=== PATIENT | female | born 1965 ===

== ENCOUNTER 2021-09-22 17:35 | Inpatient (IN) | payer MEDICARE ==
[2021-09-22] MEDS ORDERED: MELATONIN 5 MG TAB PO PRN (19:37)
[2021-09-22] MEDS: DULoxetine 30 MG CAP PO SCH (21:25)
[2021-09-22] MEDS: QUEtiapine 200 MG TAB PO SCH (21:25)
[2021-09-23 00:04] LABS: Basophils # (Auto) 0.1 K/mm3 (0.0-0.1); Basophils % (Auto) 0.8 % (0.0-1.8); Eosinophils # (Auto) 0.4 K/mm3 (0.0-0.4); Eosinophils % (Auto) 5.3 % (0.0-4.3); Hemoglobin 9.2 gm/dl (10.1-14.3); Lymphocytes # (Auto) 2.6 K/mm3 (1.2-5.4); Lymphocytes % (Auto) 37.7 % (13.4-35.0); Mean Corpuscular HGB Conc 33 % (30-34); Mean Corpuscular Volume 102 fl (79-97); Monocytes # (Auto) 1.1 K/mm3 (0.0-0.8); Monocytes % (Auto) 15.6 % (0.0-7.3); Platelet Count 426 K/mm3 (140-440); Red Blood Count 2.74 M/mm3 (3.65-5.03); Red Cell Distribution Width 14.2 % (13.2-15.2)
[2021-09-23] MEDS: traZODone 50 MG TAB PO SCH ×2 (00:05→21:26)
[2021-09-23] MEDS ORDERED: ACETAMINOPHEN 325 MG TAB PO PRN (00:44)
[2021-09-23 01:09] LABS: Alanine Aminotransferase 12 units/L (7-56); Albumin 3.5 g/dL (3.9-5); BUN/Creatinine Ratio 21; Blood Urea Nitrogen 15 mg/dL (7-17); Calcium 9.2 mg/dL (8.4-10.2); Chol/HDL Ratio 4.88 %; HDL Cholesterol 44 mg/dL (40-59); Hemolysis Index 1; LDL Cholesterol,Direct 143 mg/dL (50-130)
--- NOTE | 2021-09-23 09:34 | History and Physical Report ---
GP History & Physical - History of Present Illness Date of admission: 09/22/21 Date of Examination: 09/23/21 Reason for Admission: Danger to self, Failure of Outpatient Treatment, Severe anxiety/depression History of Present Illness: The patient was seen today. She is a/o x 3. She is calm and cooperative. She is not upfront about what happened to get her here. She was admitted after taking a handful of antipsychotics and drinking, according to admission note. During my evaluation, the patient states she was here due to a big misunderstanding. She says she told the teo she was drinking with she wish she could just sleep. She says "next thing I know he called 911." The patient says "I'm not suicidal or homicidal." When asking about the handful of pills, she says "it was a big misunderstanding." She denies hallucinations of any kind. 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 I wouldn't do that to myself." The patient says she has a history of bipolar and takes seroquel and cymbalta. She also denies chronic alcohol use. She says "I just drink occasionally. I don't get withdrawals if I don't drink." PAST PSYCHIATRIC HISTORY: Diagnoses: Bipolar Suicide attempts or Self-harm behavior: Yes- recent Prior psychiatric hospitalizations: Yes Substance Abuse history: Denies Previous psychiatric medications tried: cymbalta, seroquel Outpatient treatment: yes PAST MEDICAL HISTORY: unknown Family Psychiatric History: None reported or documented SOCIAL HISTORY Marital Status: Living Arrangements: temporarily in hotel Employment Status: Employed Access to guns/weapons: Denies Education: History of Abuse:denies Legal History: Denies REVIEW OF SYSTEMS Constitutional: Negative for weight loss ENT: Negative for stridor Respiratory: Negative for cough or hemoptysis All other systems reviewed and are negative MENTAL STATUS EXAMINATION General Appearance and Behavior: Age appropriate, good hygiene, wearing appropriate clothes. calm, cooperative Cooperation: Cooperative Psychomotor Behavior: Psychomotor normal Mood: Okay Affect and affective range: Congruent with stated mood Thought Process: Goal directed Thought Content:Reality oriented Speech: Normal Suicidal Ideation: Denies Homicidal Ideation: Denies Hallucinations: Denies Delusions: Denies Impulse Control: Limited Insight and Judgment: Limited insight and fair judgment Memory: Limited Attention: distracted Orientation: a/o x 3 Assessment (1) Bipolar Disorder Current Visit: Yes Status: Acute Treatment Plan Patient admitted for inpatient psychiatric evaluation, medication adjustment and close monitoring The patient's behavior, mood, sleep and appetite will be closely monitored. Patient enrolled in individual and group therapeutic sessions and encouraged to attend. Patient provided with a safe and structured environment. Patient's physical health needs will be addressed by the Hospitalist. Hospitalist Consulted Labs including CBC, CMP, Lipid profile and Hemoglobin A1C levels ordered for baseline reference Social Assessment will be completed and the Public Relations Account Supervisor will work with patient and family to ensure a suitable and safe disposition Medication adjustment will be made as clinically indicated Continue home medications Usual Wellness [place] [place]/Preservation: - Start Trazodone 50 mg po QHS & 50 mg po QHS PRN between 10 PM & 2 AM for insomnia - Start Melatonin 5 mg po QHS to promote circadian rhythm The patient agreed on the treatment plan, understood the risk, benefit, alternative treatment, potential consequence of no treatment, and gave informed consent. Estimated days: 7 Post hospital care: primary care provider, psychiatric provider Case staffed with Dr. Long Legal Status: Voluntary Reaction to Hospitalization: Accepting Medications and Allergies Allergies Allergy/AdvReac Type Severity Reaction Status Date / Time No Known Drug Allergies Allergy Unknown Verified 09/22/21 19:33 Home Medications Medication Instructions Recorded Confirmed Last Taken Type DULoxetine [Cymbalta] 60 mg PO BID 09/22/21 09/22/21 09/21/21 History Fluticasone Propionate [Flovent 50 mcg IH UNK 09/22/21 09/22/21 Unknown History Diskus] Fluticasone/Salmeterol(Nf) [Advair 1 puff IH Q4H 09/22/21 09/22/21 Unknown History HFA 115-21 mcg] Meloxicam [Mobic] 15 mg PO DAILY 09/22/21 09/22/21 09/21/21 History Quetiapine Fumarate [SEROquel] 400 mg PO HS 09/22/21 09/22/21 09/21/21 History Active Meds: Active Medications Acetaminophen (Acetaminophen 325 Mg Tab) 650 mg PO Q6H PRN PRN Reason: Pain, Mild (1-3) Last Admin: 09/23/21 00:53 Dose: 650 mg Duloxetine HCl (Duloxetine 30 Mg Cap) 60 mg PO BID [facility] Last Admin: 09/22/21 21:25 Dose: 60 mg Melatonin (Melatonin 5 Mg Tab) 5 mg PO QHS PRN PRN Reason: Sleep Quetiapine Fumarate (Quetiapine 200 Mg Tab) 400 mg PO QHS [facility] Last Admin: 09/22/21 21:25 Dose: 400 mg Trazodone HCl (Trazodone 50 Mg Tab) 50 mg PO QHS [facility] Last Admin: 09/23/21 00:05 Dose: Not Given Results - Results Labs/Vitals: Laboratory Last Values WBC 7.0 K/mm3 (4.5-11.0) 09/22/21 23:24 RBC 2.74 M/mm3 (3.65-5.03) L 09/22/21 23:24 Hgb 9.2 gm/dl (10.1-14.3) L 09/22/21 23:24 Hct 28.0 % (30.3-42.9) L 09/22/21 23:24 MCV 102 fl (79-97) H 09/22/21 23:24 MCH 34 pg (28-32) H 09/22/21 23:24 MCHC 33 % (30-34) 09/22/21 23:24 RDW 14.2 % (13.2-15.2) 09/22/21 23:24 Plt Count 426 K/mm3 (140-440) 09/22/21 23:24 Lymph % (Auto) 37.7 % (13.4-35.0) H 09/22/21 23:24 [place] % (Auto) 15.6 % (0.0-7.3) H 09/22/21 23:24 Eos % (Auto) 5.3 % (0.0-4.3) H 09/22/21 23:24 Baso % (Auto) 0.8 % (0.0-1.8) 09/22/21 23:24 Lymph # (Auto) 2.6 K/mm3 (1.2-5.4) 09/22/21 23:24 [place] # (Auto) 1.1 K/mm3 (0.0-0.8) H 09/22/21 23:24 Eos # (Auto) 0.4 K/mm3 (0.0-0.4) 09/22/21 23:24 Baso # (Auto) 0.1 K/mm3 (0.0-0.1) 09/22/21 23:24 Seg Neutrophils % 40.6 % (40.0-70.0) 09/22/21 23:24 Seg Neutrophils # 2.8 K/mm3 (1.8-7.7) 09/22/21 23:24 Sodium 137 mmol/L (137-145) 09/22/21 23:24 Potassium 4.0 mmol/L (3.6-5.0) 09/22/21 23:24 Chloride 102.0 mmol/L (98-107) 09/22/21 23:24 Carbon Dioxide 22 mmol/L (22-30) 09/22/21 23:24 Anion Gap 17 mmol/L 09/22/21 23:24 BUN 15 mg/dL (7-17) 09/22/21 23:24 Creatinine 0.7 mg/dL (0.6-1.2) 09/22/21 23:24 Estimated GFR > 60 ml/min 09/22/21 23:24 BUN/Creatinine Ratio 21 % 09/22/21 23:24 Glucose 103 mg/dL (65-100) H 09/22/21 23:24 Hemoglobin A1c 5.5 % (4-6) 09/22/21 23:24 Calcium 9.2 mg/dL (8.4-10.2) 09/22/21 23:24 Total Bilirubin < 0.20 mg/dL (0.1-1.2) 09/22/21 23:24 AST 17 units/L (5-40) 09/22/21 23:24 ALT 12 units/L (7-56) 09/22/21 23:24 Alkaline Phosphatase 79 units/L (35-129) 09/22/21 23:24 Total Protein 6.5 g/dL (6.3-8.2) 09/22/21 23:24 Albumin 3.5 g/dL (3.9-5) L 09/22/21 23:24 Albumin/Globulin Ratio 1.2 % 09/22/21 23:24 Triglycerides 249 mg/dL (2-149) H 09/22/21 23:24 Cholesterol 215 mg/dL (50-199) H 09/22/21 23:24 LDL Cholesterol Direct 143 mg/dL (50-130) H 09/22/21 23:24 HDL Cholesterol 44 mg/dL (40-59) 09/22/21 23:24 Cholesterol/HDL Ratio 4.88 % 09/22/21 23:24 TSH 7.010 mlU/mL (0.270-4.200) H 09/22/21 23:24 Last Vital Signs Temp 99.5 F 09/22/21 22:00 Pulse 77 09/22/21 22:00 Resp 16 09/22/21 22:00 BP 135/92 09/22/21 22:00 Pulse Ox 95 09/22/21 22:00 Physical Examination - Constitutional Vitals: Vital Signs Temp Pulse Resp BP Pulse Ox 99.5 F 77 16 135/92 95 09/22/21 22:00 09/22/21 22:00 09/22/21 22:00 09/22/21 22:00 09/22/21 22:00 Temperature -Last 24 Hours Temperature 99.5 F Mental Status Exam - Vital signs Last Vital Signs Temp 99.5 F 09/22/21 22:00 Pulse 77 09/22/21 22:00 Resp 16 09/22/21 22:00 BP 135/92 09/22/21 22:00 Pulse Ox 95 09/22/21 22:00 Physician Certification - Certification Statement Physician Certification Statement: This is an acknowledgement statement that VISHAL BOJORQUEZ is a 56 year old F who requires inpatient psychiatric admission for treatment which could reasonably be expected to improve the patient's condition for Estimated period of time patient will need to remain in the hospital: [ ] Plan for post-hospital care: [ ]
[2021-09-23] MEDS ORDERED: NON-FORMULARY EACH (Fluticasone/Salmeterol(Nf) [Advair Hfa 115-21 Mcg] 115 MCG/PUFF Hfa.Ae IH SCH (09:45)
[2021-09-23] MEDS ORDERED: NON-FORMULARY EACH (Fluticasone Propionate [Flovent Diskus] 50 MCG Blst.W.Dev) IH SCH (09:45)
[2021-09-23] MEDS ORDERED: NON-FORMULARY EACH (Meloxicam [Mobic] 15 MG Tablet) PO SCH (10:00)
[2021-09-23] MEDS: DULoxetine 30 MG CAP PO SCH ×2 (10:39→21:26)
[2021-09-23] MEDS: MELOXICAM 7.5 MG TAB PO SCH (10:40)
[2021-09-23] MEDS: QUEtiapine 200 MG TAB PO SCH (21:26)
[2021-09-24] MEDS: MELOXICAM 7.5 MG TAB PO SCH (09:50)
[2021-09-24] MEDS: DULoxetine 30 MG CAP PO SCH ×2 (09:52→21:16)
--- NOTE | 2021-09-24 10:16 | Progress Note ---
Subjective Date of service: 09/24/21 Principal diagnosis: Bipolar Disorder Subjective Comment: The patient was seen today. She is asking to go home. She denies SI/HI or hallucinations of any kind. I advised the patient that she will discharge once the SW is able to set up all outpatient resources to ensure her safety and continuity of mental wellness. REVIEW OF SYSTEMS Constitutional: Negative for weight loss ENT: Negative for stridor Respiratory: Negative for cough or hemoptysis All other systems reviewed and are negative MENTAL STATUS EXAMINATION General Appearance and Behavior: Age appropriate, good hygiene, wearing appropriate clothes. calm, cooperative Cooperation: Cooperative Psychomotor Behavior: Psychomotor normal Mood: Okay Affect and affective range: Congruent with stated mood Thought Process: Goal directed Thought Content:Reality oriented Speech: Normal Suicidal Ideation: Denies Homicidal Ideation: Denies Hallucinations: Denies Delusions: Denies Impulse Control: Limited Insight and Judgment: Limited insight and fair judgment Memory: Limited Attention: distracted Orientation: a/o x 3 Assessment (1) Bipolar Disorder Current Visit: Yes Status: Acute Treatment Plan Patient admitted for inpatient psychiatric evaluation, medication adjustment and close monitoring The patient's behavior, mood, sleep and appetite will be closely monitored. Patient enrolled in individual and group therapeutic sessions and encouraged to attend. Patient provided with a safe and structured environment. Patient's physical health needs will be addressed by the Hospitalist. Hospitalist Consulted Labs including CBC, CMP, Lipid profile and Hemoglobin A1C levels ordered for baseline reference Social Assessment will be completed and the Poiser Balance will work with patient and family to ensure a suitable and safe disposition Medication adjustment will be made as clinically indicated Continue home medications Usual Wellness [employer]/Preservation: - Start Trazodone 50 mg po QHS & 50 mg po QHS PRN between 10 PM & 2 AM for insomnia - Start Melatonin 5 mg po QHS to promote circadian rhythm The patient agreed on the treatment plan, understood the risk, benefit, alternative treatment, potential consequence of no treatment, and gave informed consent. Estimated days: 7 Post hospital care: primary care provider, psychiatric provider Case staffed with Dr. Long Legal Status: Voluntary Reaction to Hospitalization: Accepting Medications and Allergies Allergies Allergy/AdvReac Type Severity Reaction Status Date / Time No Known Drug Allergies Allergy Unknown Verified 09/22/21 19:33 Home Medications Medication Instructions Recorded Confirmed Last Taken Type DULoxetine [Cymbalta] 60 mg PO BID 09/22/21 09/22/21 09/21/21 History Fluticasone Propionate [Flovent 50 mcg IH UNK 09/22/21 09/22/21 Unknown History Diskus] Fluticasone/Salmeterol(Nf) [Advair 1 puff IH Q4H 09/22/21 09/22/21 Unknown History HFA 115-21 mcg] Meloxicam [Mobic] 15 mg PO DAILY 09/22/21 09/22/21 09/21/21 History Quetiapine Fumarate [SEROquel] 400 mg PO HS 09/22/21 09/22/21 09/21/21 History Active Meds: Active Medications Acetaminophen (Acetaminophen 325 Mg Tab) 650 mg PO Q6H PRN PRN Reason: Pain, Mild (1-3) Last Admin: 09/23/21 00:53 Dose: 650 mg Arformoterol Tartrate (Arformoterol 15 Mcg/2 Ml Nebu) 15 mcg IH Q12HRT [facility] Budesonide (Budesonide 0.5 Mg/2 Ml Nebu) 0.5 mg IH Q12HRT [facility] Duloxetine HCl (Duloxetine 30 Mg Cap) 60 mg PO BID [facility] Last Admin: 09/24/21 09:52 Dose: 60 mg Melatonin (Melatonin 5 Mg Tab) 5 mg PO QHS PRN PRN Reason: Sleep Meloxicam (Meloxicam 7.5 Mg Tab) 15 mg PO QDAY [facility] Last Admin: 09/24/21 09:50 Dose: 15 mg Quetiapine Fumarate (Quetiapine 200 Mg Tab) 400 mg PO QHS [facility] Last Admin: 09/23/21 21:26 Dose: 400 mg Trazodone HCl (Trazodone 50 Mg Tab) 50 mg PO QHS [facility] Last Admin: 09/23/21 21:26 Dose: 50 mg Results - Results Labs/Vitals: Laboratory Last Values WBC 7.0 K/mm3 (4.5-11.0) 09/22/21 23:24 RBC 2.74 M/mm3 (3.65-5.03) L 09/22/21 23:24 Hgb 9.2 gm/dl (10.1-14.3) L 09/22/21 23:24 Hct 28.0 % (30.3-42.9) L 09/22/21 23:24 MCV 102 fl (79-97) H 09/22/21 23:24 MCH 34 pg (28-32) H 09/22/21 23:24 MCHC 33 % (30-34) 09/22/21 23:24 RDW 14.2 % (13.2-15.2) 09/22/21 23:24 Plt Count 426 K/mm3 (140-440) 09/22/21 23:24 Lymph % (Auto) 37.7 % (13.4-35.0) H 09/22/21 23:24 [place] % (Auto) 15.6 % (0.0-7.3) H 09/22/21 23:24 Eos % (Auto) 5.3 % (0.0-4.3) H 09/22/21 23:24 Baso % (Auto) 0.8 % (0.0-1.8) 09/22/21 23:24 Lymph # (Auto) 2.6 K/mm3 (1.2-5.4) 09/22/21 23:24 [place] # (Auto) 1.1 K/mm3 (0.0-0.8) H 09/22/21 23:24 Eos # (Auto) 0.4 K/mm3 (0.0-0.4) 09/22/21 23:24 Baso # (Auto) 0.1 K/mm3 (0.0-0.1) 09/22/21 23:24 Seg Neutrophils % 40.6 % (40.0-70.0) 09/22/21 23:24 Seg Neutrophils # 2.8 K/mm3 (1.8-7.7) 09/22/21 23:24 Sodium 137 mmol/L (137-145) 09/22/21 23:24 Potassium 4.0 mmol/L (3.6-5.0) 09/22/21 23:24 Chloride 102.0 mmol/L (98-107) 09/22/21 23:24 Carbon Dioxide 22 mmol/L (22-30) 09/22/21 23:24 Anion Gap 17 mmol/L 09/22/21 23:24 BUN 15 mg/dL (7-17) 09/22/21 23:24 Creatinine 0.7 mg/dL (0.6-1.2) 09/22/21 23:24 Estimated GFR > 60 ml/min 09/22/21 23:24 BUN/Creatinine Ratio 21 % 09/22/21 23:24 Glucose 103 mg/dL (65-100) H 09/22/21 23:24 Hemoglobin A1c 5.5 % (4-6) 09/22/21 23:24 Calcium 9.2 mg/dL (8.4-10.2) 09/22/21 23:24 Total Bilirubin < 0.20 mg/dL (0.1-1.2) 09/22/21 23:24 AST 17 units/L (5-40) 09/22/21 23:24 ALT 12 units/L (7-56) 09/22/21 23:24 Alkaline Phosphatase 79 units/L (35-129) 09/22/21 23:24 Total Protein 6.5 g/dL (6.3-8.2) 09/22/21 23:24 Albumin 3.5 g/dL (3.9-5) L 09/22/21 23:24 Albumin/Globulin Ratio 1.2 % 09/22/21 23:24 Triglycerides 249 mg/dL (2-149) H 09/22/21 23:24 Cholesterol 215 mg/dL (50-199) H 09/22/21 23:24 LDL Cholesterol Direct 143 mg/dL (50-130) H 09/22/21 23:24 HDL Cholesterol 44 mg/dL (40-59) 09/22/21 23:24 Cholesterol/HDL Ratio 4.88 % 09/22/21 23:24 TSH 7.010 mlU/mL (0.270-4.200) H 09/22/21 23:24 Last Vital Signs Temp 98.6 F 09/23/21 19:22 Pulse 74 09/23/21 19:22 Resp 17 09/23/21 19:22 BP 134/94 09/23/21 19:22 Pulse Ox 95 09/23/21 19:22
[2021-09-24] MEDS: BUDESONIDE 0.5 MG/2 ML NEBU IH SCH ×2 (10:52→10:53)
[2021-09-24] MEDS: ARFORMOTEROL 15 MCG/2 ML NEBU IH SCH ×2 (10:52→10:53)
--- NOTE | 2021-09-24 20:15 | Consultation ---
History of Present Illness - Reason for Consult Consult date: 09/22/21 medical management Requesting physician: CONCEPCION ZAVALETA - History of Present Illness 56 YO Female with ETOH Dependence, CHELSEA, Bipolar Disorder, Depression admitted to [facility] unit for psychiatric stabilization. Consult placed by Dr. Zavaleta for medical management. Patient seen and evaluated in her room. Patient fever, chills, chest pain, palpitation productive cough, skin rash, recent contact, nondisplaced COVID-19. No reported nursing events. Patient denies pain. Patient at baseline level of cognition and function. Past History Past Medical History: other (See HPI) Past Surgical History: No surgical history, Other (Reviewed) Social history: , alcohol abuse Family history: no significant family history Medications and Allergies Allergies Allergy/AdvReac Type Severity Reaction Status Date / Time No Known Drug Allergies Allergy Unknown Verified 09/22/21 19:33 Home Medications Medication Instructions Recorded Confirmed Last Taken Type DULoxetine [Cymbalta] 60 mg PO BID 09/22/21 09/22/21 09/21/21 History Fluticasone Propionate [Flovent 50 mcg IH UNK 09/22/21 09/22/21 Unknown History Diskus] Fluticasone/Salmeterol(Nf) [Advair 1 puff IH Q4H 09/22/21 09/22/21 Unknown History HFA 115-21 mcg] Meloxicam [Mobic] 15 mg PO DAILY 09/22/21 09/22/21 09/21/21 History Quetiapine Fumarate [SEROquel] 400 mg PO HS 09/22/21 09/22/21 09/21/21 History Active Meds: Active Medications Acetaminophen (Acetaminophen 325 Mg Tab) 650 mg PO Q6H PRN PRN Reason: Pain, Mild (1-3) Last Admin: 09/23/21 00:53 Dose: 650 mg Arformoterol Tartrate (Arformoterol 15 Mcg/2 Ml Nebu) 15 mcg IH Q12HRT [facility] Last Admin: 09/24/21 10:53 Dose: Not Given Budesonide (Budesonide 0.5 Mg/2 Ml Nebu) 0.5 mg IH Q12HRT [facility] Last Admin: 09/24/21 10:53 Dose: Not Given Duloxetine HCl (Duloxetine 30 Mg Cap) 60 mg PO BID [facility] Last Admin: 09/24/21 09:52 Dose: 60 mg Melatonin (Melatonin 5 Mg Tab) 5 mg PO QHS PRN PRN Reason: Sleep Meloxicam (Meloxicam 7.5 Mg Tab) 15 mg PO QDAY [facility] Last Admin: 09/24/21 09:50 Dose: 15 mg Quetiapine Fumarate (Quetiapine 200 Mg Tab) 400 mg PO QHS [facility] Last Admin: 09/23/21 21:26 Dose: 400 mg Trazodone HCl (Trazodone 50 Mg Tab) 50 mg PO QHS [facility] Last Admin: 09/23/21 21:26 Dose: 50 mg Review of Systems Constitutional: no weight loss, no weight gain, no chills, no sweats Ears, nose, mouth and throat: no ear pain, no tinnitis, no nose pain, no nasal congestion, no nasal discharge Breasts: no change in shape, no swelling, no mass Cardiovascular: no chest pain, no palpitations, no lightheadedness Respiratory: no cough, no excessive sputum, no hemoptysis, no dyspnea on exertion Gastrointestinal: no abdominal pain, no nausea, no vomiting, no diarrhea, no change in bowel habits, no hematemesis Genitourinary Female: no pelvic pain, no flank pain, no dysuria, no urinary frequency, no urgency Rectal: no pain Musculoskeletal: no neck stiffness, no neck pain, no arm numbness/tingling, no low back pain Integumentary: no rash, no pruritis, no wounds, no jaundice, no boils Neurological: no head injury, no paralysis, no parathesias, no tingling, no syncope, no tremors Psychiatric: anxiety, depression, anhedonia, irritability Endocrine: no cold intolerance, no heat intolerance, no polyuria, no excessive sweating Hematologic/Lymphatic: no easy bruising, no easy bleeding Allergic/Immunologic: no urticaria, no allergic rhinitis, no wheezing Exam - Constitutional Vitals: Temp Pulse Resp BP Pulse Ox 98.6 F 74 17 134/94 95 09/23/21 19:22 09/23/21 19:22 09/23/21 19:22 09/23/21 19:22 09/23/21 19:22 General appearance: Present: no acute distress, well-nourished - EENT Eyes: Present: PERRL ENT: hearing intact, clear oral mucosa - Neck Neck: Present: supple, normal ROM - Respiratory Respiratory effort: normal Respiratory: bilateral: CTA - Cardiovascular Heart Sounds: Present: S1 & S2. Absent: rub, click - Extremities Extremities: pulses symmetrical, No edema Peripheral Pulses: within normal limits - Abdominal General gastrointestinal: Present: soft, non-tender, non-distended, normal bowel sounds Female genitourinary: Present: normal - Integumentary Integumentary: Present: clear, warm, dry - Musculoskeletal Musculoskeletal: gait normal, strength equal bilaterally - Psychiatric Psychiatric: appropriate mood/affect, intact judgment & insight - Neurologic Neurologic: CNII-XII intact, moves all extremities Results - Labs CBC & Chem 7: 09/22/21 23:24 09/22/21 23:24 Assessment and Plan - Patient Problems (1) Alcohol dependence Current Visit: Yes Status: Acute Plan to address problem: Thiamine, folic acid, multivitamin daily. Patient does not exhibit signs or symptoms of alcohol withdrawal at this time. (2) Anxiety Current Visit: Yes Status: Acute Plan to address problem: Benzodiazepine therapy as clinically indicated. (3) Depression Current Visit: Yes Status: Acute Plan to address problem: Continue medical management. (4) Bipolar disorder Current Visit: Yes Status: Acute Plan to address problem: Continue medical management. (5) Advance care planning Current Visit: Yes Status: Acute Plan to address problem: Disease education conducted, care plan discussed, diagnosis discussed, prognosis discussed, patient is full code. Patient knowledges understanding and agreement with care plan.
[2021-09-24] MEDS: FOLIC ACID 1 MG TAB PO SCH (21:18)
[2021-09-24] MEDS: THIAMINE 100 MG TAB PO SCH (21:19)
[2021-09-24] MEDS: traZODone 50 MG TAB PO SCH (21:19)
[2021-09-24] MEDS: MULTIVITAMINS ,THERAPEUTIC TAB PO SCH (21:19)
[2021-09-24] MEDS: QUEtiapine 200 MG TAB PO SCH (21:20)
[2021-09-25] MEDS: FOLIC ACID 1 MG TAB PO SCH (09:14)
[2021-09-25] MEDS: MELOXICAM 7.5 MG TAB PO SCH (09:14)
[2021-09-25] MEDS: DULoxetine 30 MG CAP PO SCH ×2 (09:15→21:02)
[2021-09-25] MEDS: MULTIVITAMINS ,THERAPEUTIC TAB PO SCH (09:15)
[2021-09-25] MEDS: THIAMINE 100 MG TAB PO SCH (09:15)
--- NOTE | 2021-09-25 09:34 | Progress Note ---
Subjective Date of service: 09/25/21 Principal diagnosis: Bipolar Disorder Subjective Comment: The patient was seen today. The patient is upset and asking to leave. She is not upfront about why she was admitted here. The patient says she only told someone she was drinking with that she wanted to sleep. But the patient was intubated for an OD. She presently denies SI/HI at present, but for her safety I will continue to treat and monitor this patient. If no events overnight she will discharge tomorrow once outpatient resources are in place. REVIEW OF SYSTEMS Constitutional: Negative for weight loss ENT: Negative for stridor Respiratory: Negative for cough or hemoptysis All other systems reviewed and are negative MENTAL STATUS EXAMINATION General Appearance and Behavior: Age appropriate, good hygiene, wearing appropriate clothes. calm, cooperative Cooperation: Cooperative Psychomotor Behavior: Psychomotor normal Mood: Okay Affect and affective range: Congruent with stated mood Thought Process: Goal directed Thought Content:Reality oriented Speech: Normal Suicidal Ideation: Denies Homicidal Ideation: Denies Hallucinations: Denies Delusions: Denies Impulse Control: Limited Insight and Judgment: Limited insight and fair judgment Memory: Limited Attention: distracted Orientation: a/o x 3 Assessment (1) Bipolar Disorder Current Visit: Yes Status: Acute Treatment Plan Patient admitted for inpatient psychiatric evaluation, medication adjustment and close monitoring The patient's behavior, mood, sleep and appetite will be closely monitored. Patient enrolled in individual and group therapeutic sessions and encouraged to attend. Patient provided with a safe and structured environment. Patient's physical health needs will be addressed by the Hospitalist. Hospitalist Consulted Labs including CBC, CMP, Lipid profile and Hemoglobin A1C levels ordered for baseline reference Social Assessment will be completed and the [employer] will work with patient and family to ensure a suitable and safe disposition Medication adjustment will be made as clinically indicated Continue home medications Usual Wellness Voodoo/Preservation: - Start Trazodone 50 mg po QHS & 50 mg po QHS PRN between 10 PM & 2 AM for insomnia - Start Melatonin 5 mg po QHS to promote circadian rhythm The patient agreed on the treatment plan, understood the risk, benefit, alternative treatment, potential consequence of no treatment, and gave informed consent. Estimated days: 1 Post hospital care: primary care provider, psychiatric provider Case staffed with Dr. Long Medications and Allergies Allergies Allergy/AdvReac Type Severity Reaction Status Date / Time No Known Drug Allergies Allergy Unknown Verified 09/22/21 19:33 Home Medications Medication Instructions Recorded Confirmed Last Taken Type DULoxetine [Cymbalta] 60 mg PO BID 09/22/21 09/22/21 09/21/21 History Fluticasone Propionate [Flovent 50 mcg IH UNK 09/22/21 09/22/21 Unknown History Diskus] Fluticasone/Salmeterol(Nf) [Advair 1 puff IH Q4H 09/22/21 09/22/21 Unknown History HFA 115-21 mcg] Meloxicam [Mobic] 15 mg PO DAILY 09/22/21 09/22/21 09/21/21 History Quetiapine Fumarate [SEROquel] 400 mg PO HS 09/22/21 09/22/21 09/21/21 History Active Meds: Active Medications Acetaminophen (Acetaminophen 325 Mg Tab) 650 mg PO Q6H PRN PRN Reason: Pain, Mild (1-3) Last Admin: 09/23/21 00:53 Dose: 650 mg Arformoterol Tartrate (Arformoterol 15 Mcg/2 Ml Nebu) 15 mcg IH Q12HRT [facility] Last Admin: 09/24/21 10:53 Dose: Not Given Budesonide (Budesonide 0.5 Mg/2 Ml Nebu) 0.5 mg IH Q12HRT [facility] Last Admin: 09/24/21 10:53 Dose: Not Given Duloxetine HCl (Duloxetine 30 Mg Cap) 60 mg PO BID [facility] Last Admin: 09/25/21 09:15 Dose: 60 mg Folic Acid (Folic Acid 1 Mg Tab) 1 mg PO QDAY [facility] Last Admin: 09/25/21 09:14 Dose: 1 mg Melatonin (Melatonin 5 Mg Tab) 5 mg PO QHS PRN PRN Reason: Sleep Meloxicam (Meloxicam 7.5 Mg Tab) 15 mg PO QDAY [facility] Last Admin: 09/25/21 09:14 Dose: 15 mg Multivitamins (Multivitamins ,Therapeutic Tab) 1 each PO QDAY [facility] Last Admin: 09/25/21 09:15 Dose: 1 each Quetiapine Fumarate (Quetiapine 200 Mg Tab) 400 mg PO QHS [facility] Last Admin: 09/24/21 21:20 Dose: 400 mg Thiamine HCl (Thiamine 100 Mg Tab) 100 mg PO QDAY [facility] Last Admin: 09/25/21 09:15 Dose: 100 mg Trazodone HCl (Trazodone 50 Mg Tab) 50 mg PO QHS [facility] Last Admin: 09/24/21 21:19 Dose: 50 mg Results - Results Labs/Vitals: Laboratory Last Values WBC 7.0 K/mm3 (4.5-11.0) 09/22/21 23:24 RBC 2.74 M/mm3 (3.65-5.03) L 09/22/21 23:24 Hgb 9.2 gm/dl (10.1-14.3) L 09/22/21 23:24 Hct 28.0 % (30.3-42.9) L 09/22/21 23:24 MCV 102 fl (79-97) H 09/22/21 23:24 MCH 34 pg (28-32) H 09/22/21 23:24 MCHC 33 % (30-34) 09/22/21 23:24 RDW 14.2 % (13.2-15.2) 09/22/21 23:24 Plt Count 426 K/mm3 (140-440) 09/22/21 23:24 Lymph % (Auto) 37.7 % (13.4-35.0) H 09/22/21 23:24 Pepin % (Auto) 15.6 % (0.0-7.3) H 09/22/21 23:24 Eos % (Auto) 5.3 % (0.0-4.3) H 09/22/21 23:24 Baso % (Auto) 0.8 % (0.0-1.8) 09/22/21 23:24 Lymph # (Auto) 2.6 K/mm3 (1.2-5.4) 09/22/21 23:24 Pepin # (Auto) 1.1 K/mm3 (0.0-0.8) H 09/22/21 23:24 Eos # (Auto) 0.4 K/mm3 (0.0-0.4) 09/22/21 23:24 Baso # (Auto) 0.1 K/mm3 (0.0-0.1) 09/22/21 23:24 Seg Neutrophils % 40.6 % (40.0-70.0) 09/22/21 23:24 Seg Neutrophils # 2.8 K/mm3 (1.8-7.7) 09/22/21 23:24 Sodium 137 mmol/L (137-145) 09/22/21 23:24 Potassium 4.0 mmol/L (3.6-5.0) 09/22/21 23:24 Chloride 102.0 mmol/L (98-107) 09/22/21 23:24 Carbon Dioxide 22 mmol/L (22-30) 09/22/21 23:24 Anion Gap 17 mmol/L 09/22/21 23:24 BUN 15 mg/dL (7-17) 09/22/21 23:24 Creatinine 0.7 mg/dL (0.6-1.2) 09/22/21 23:24 Estimated GFR > 60 ml/min 09/22/21 23:24 BUN/Creatinine Ratio 21 % 09/22/21 23:24 Glucose 103 mg/dL (65-100) H 09/22/21 23:24 Hemoglobin A1c 5.5 % (4-6) 09/22/21 23:24 Calcium 9.2 mg/dL (8.4-10.2) 09/22/21 23:24 Total Bilirubin < 0.20 mg/dL (0.1-1.2) 09/22/21 23:24 AST 17 units/L (5-40) 09/22/21 23:24 ALT 12 units/L (7-56) 09/22/21 23:24 Alkaline Phosphatase 79 units/L (35-129) 09/22/21 23:24 Total Protein 6.5 g/dL (6.3-8.2) 09/22/21 23:24 Albumin 3.5 g/dL (3.9-5) L 09/22/21 23:24 Albumin/Globulin Ratio 1.2 % 09/22/21 23:24 Triglycerides 249 mg/dL (2-149) H 09/22/21 23:24 Cholesterol 215 mg/dL (50-199) H 09/22/21 23:24 LDL Cholesterol Direct 143 mg/dL (50-130) H 09/22/21 23:24 HDL Cholesterol 44 mg/dL (40-59) 09/22/21 23:24 Cholesterol/HDL Ratio 4.88 % 09/22/21 23:24 TSH 7.010 mlU/mL (0.270-4.200) H 09/22/21 23:24 Last Vital Signs Temp 98.5 F 09/25/21 08:29 Pulse 77 09/25/21 08:29 Resp 18 09/25/21 09:14 BP 123/85 09/25/21 08:29 Pulse Ox 99 09/25/21 08:29
[2021-09-25] MEDS: BUDESONIDE 0.5 MG/2 ML NEBU IH SCH (10:19)
[2021-09-25] MEDS: ARFORMOTEROL 15 MCG/2 ML NEBU IH SCH (10:19)
[2021-09-25] MEDS: traZODone 50 MG TAB PO SCH (21:03)
[2021-09-25] MEDS: QUEtiapine 200 MG TAB PO SCH (21:03)
[2021-09-26 07:47] VITALS: BP 110/63
[2021-09-26] MEDS: MELOXICAM 7.5 MG TAB PO SCH (09:41)
[2021-09-26] MEDS: MULTIVITAMINS ,THERAPEUTIC TAB PO SCH (09:42)
[2021-09-26] MEDS: FOLIC ACID 1 MG TAB PO SCH (09:42)
[2021-09-26] MEDS: THIAMINE 100 MG TAB PO SCH (09:42)
[2021-09-26] MEDS: DULoxetine 30 MG CAP PO SCH (09:42)
--- NOTE | 2021-09-26 09:57 | Discharge Summary ---
Providers - Providers Date of Admission: 09/22/21 21:19 Date of discharge: 09/26/21 Attending physician: CONCEPCION ZAVALETA MD 09/22/21 19:33 Consult to Physician [CONS] Routine Comment: Consulting Provider: JV ROCHA Physician Instructions: Reason For Exam: manage medical conditions Primary care physician: DROP WIRER Hospitalization Reason for admission: SI Admitting Diagnosis: F31.9 - BIPOLAR DISORDER, UNSPECIFIED Condition: Stable Hospital course: The patient was provided inpatient psychiatric treatment with safe and supportive environment, group/individual therapy, psychiatric medication, medication adjustment, adverse effect monitor, medical evaluation, medical [place] atment, social service assessment, social support meeting, placement assessment and psycho-education. The patients mood, cognition, behavior, motivation, compliance to treatment and appreciation on family/social support are improved and stabilized. At the time of discharge, the patient had no suicidal ideas, no homicidal ideas, no aggressive thoughts, no endangering behavior and no debilitating adverse effects. The patient agreed on the treatment plan, understood the risk, benefit, alternative treatment, potential consequence of no treatment, and gave informed consent. Disposition: HOME / SELF CARE / HOMELESS Time spent for discharge: 35 Allergies/Adverse Reactions: Allergies No Known Drug Allergies Allergy (Verified 09/22/21 19:33) Unknown Vital Signs: Last Vital Signs Temp 98.3 F 09/26/21 07:24 Pulse 75 09/26/21 07:24 Resp 16 09/26/21 07:24 BP 110/63 09/26/21 07:24 Pulse Ox 100 09/26/21 07:24 Last Lab: Laboratory Last Values WBC 7.0 K/mm3 (4.5-11.0) 09/22/21 23:24 RBC 2.74 M/mm3 (3.65-5.03) L 09/22/21 23:24 Hgb 9.2 gm/dl (10.1-14.3) L 09/22/21 23:24 Hct 28.0 % (30.3-42.9) L 09/22/21 23:24 MCV 102 fl (79-97) H 09/22/21 23:24 MCH 34 pg (28-32) H 09/22/21 23:24 MCHC 33 % (30-34) 09/22/21 23:24 RDW 14.2 % (13.2-15.2) 09/22/21 23:24 Plt Count 426 K/mm3 (140-440) 09/22/21 23:24 Lymph % (Auto) 37.7 % (13.4-35.0) H 09/22/21 23:24 [place] % (Auto) 15.6 % (0.0-7.3) H 09/22/21 23:24 Eos % (Auto) 5.3 % (0.0-4.3) H 09/22/21 23:24 Baso % (Auto) 0.8 % (0.0-1.8) 09/22/21 23:24 Lymph # (Auto) 2.6 K/mm3 (1.2-5.4) 09/22/21 23:24 [place] # (Auto) 1.1 K/mm3 (0.0-0.8) H 09/22/21 23:24 Eos # (Auto) 0.4 K/mm3 (0.0-0.4) 09/22/21 23:24 Baso # (Auto) 0.1 K/mm3 (0.0-0.1) 09/22/21 23:24 Seg Neutrophils % 40.6 % (40.0-70.0) 09/22/21 23:24 Seg Neutrophils # 2.8 K/mm3 (1.8-7.7) 09/22/21 23:24 Sodium 137 mmol/L (137-145) 09/22/21 23:24 Potassium 4.0 mmol/L (3.6-5.0) 09/22/21 23:24 Chloride 102.0 mmol/L (98-107) 09/22/21 23:24 Carbon Dioxide 22 mmol/L (22-30) 09/22/21 23:24 Anion Gap 17 mmol/L 09/22/21 23:24 BUN 15 mg/dL (7-17) 09/22/21 23:24 Creatinine 0.7 mg/dL (0.6-1.2) 09/22/21 23:24 Estimated GFR > 60 ml/min 09/22/21 23:24 BUN/Creatinine Ratio 21 % 09/22/21 23:24 Glucose 103 mg/dL (65-100) H 09/22/21 23:24 Hemoglobin A1c 5.5 % (4-6) 09/22/21 23:24 Calcium 9.2 mg/dL (8.4-10.2) 09/22/21 23:24 Total Bilirubin < 0.20 mg/dL (0.1-1.2) 09/22/21 23:24 AST 17 units/L (5-40) 09/22/21 23:24 ALT 12 units/L (7-56) 09/22/21 23:24 Alkaline Phosphatase 79 units/L (35-129) 09/22/21 23:24 Total Protein 6.5 g/dL (6.3-8.2) 09/22/21 23:24 Albumin 3.5 g/dL (3.9-5) L 09/22/21 23:24 Albumin/Globulin Ratio 1.2 % 09/22/21 23:24 Triglycerides 249 mg/dL (2-149) H 09/22/21 23:24 Cholesterol 215 mg/dL (50-199) H 09/22/21 23:24 LDL Cholesterol Direct 143 mg/dL (50-130) H 09/22/21 23:24 HDL Cholesterol 44 mg/dL (40-59) 09/22/21 23:24 Cholesterol/HDL Ratio 4.88 % 09/22/21 23:24 TSH 7.010 mlU/mL (0.270-4.200) H 09/22/21 23:24 Core Measure Documentation - Palliative Care Palliative Care/ Comfort Measures: Not Applicable - Core Measures Any of the following diagnoses?: none Exam - Constitutional Vitals: Temp Pulse Resp BP Pulse Ox 98.3 F 75 16 110/63 100 09/26/21 07:24 09/26/21 07:24 09/26/21 07:24 09/26/21 07:24 09/26/21 07:24 General appearance: Present: no acute distress - EENT Eyes: Present: EOM intact ENT: hearing intact, clear oral mucosa - Neck Neck: Present: supple, normal ROM - Respiratory Respiratory effort: normal Plan Activity: advance as tolerated Weight Bearing Status: Weight Bear as Tolerated Care Plan Goals: Maintain good and stable mental health Plan of Treatment: The patient should be compliant with medications, not to use drugs and not to drink alcohol. The patient understands that if suicidal ideas, homicidal ideas, or any endangering thoughts/behavior arise, they should immediately seek for emergent assistance including but not limited to crisis hot line and emergency room. Follow up with outpatient Psychiatrist and PCP within 7 - 14 days of discharge. Assessment: Bipolar Disorder Alcohol Dependence Follow up with: PRIMARY CARE,MD [Primary Care Provider] - 7 Days Prescriptions: traZODone [Desyrel] 50 mg PO QHS #30 tablet Melatonin [Melatonin 5MG TAB] 5 mg PO QHS PRN #30 tablet PRN Reason: Sleep Folic Acid [Folvite] 1 mg PO QDAY #30 tablet Multivitamin Tab [Multiple Vitamin TAB (Theragran)] 1 each PO QDAY #30 tablet Thiamine [Vitamin B-1] 100 mg PO QDAY #30 tablet
[2021-09-26] MEDS: BUDESONIDE 0.5 MG/2 ML NEBU IH SCH (11:08)
[2021-09-26] MEDS: ARFORMOTEROL 15 MCG/2 ML NEBU IH SCH (11:08)
== END 2021-09-26 13:30 | disposition home or self-care (01) | DRG 885 ==
LOC: 3A 17:35 → UNDOADMIN 17:35 → 5A 21:19
PROVIDERS: ADMIT Psychiatry & Neurology Psychiatry; ATTEND Psychiatry & Neurology Psychiatry
DX: F31.9 Bipolar disorder, unspecified (principal); F41.9 Anxiety disorder, unspecified; F10.20 Alcohol dependence, uncomplicated; Z20.822 Contact with and (suspected) exposure to COVID-19
CPT/HCPCS: 36415; 80053; 80061; 83036; 84443; 85025; 94640; G0378

== ENCOUNTER 2022-04-26 01:07 | Emergency (ER) | payer MEDICARE ==
[2022-04-26 07:59] VITALS: BP 107/70
[2022-04-26] MEDS ORDERED: IBUPROFEN 800 MG TAB PO ONE (11:15)
--- NOTE | 2022-04-26 11:15 | Emergency Department Report ---
ED General Adult HPI - General Chief complaint: Extremity Problem,Nontraumatic Stated complaint: BONE COMING OUT FOOT PUI?: No Time Seen by Provider: 04/26/22 11:06 Source: patient Mode of arrival: Ambulatory Limitations: Physical Limitation - History of Present Illness Initial comments: 57 yo comes to ER last night while walking home and developing foot pain She has a/c foot pain w prior surg She was d/c from [facility] facility where she was for etoh detox and was walking to [place]. Her foot started to hurt so she comes to ER She was in [place] all night and initially did not answer to calling her name No fall/trauma She states she has a law suit over this foot injury that occurred years ago. -: Gradual, year(s) Severity scale (0 -10): 6 Consistency: constant Improves with: none Worsens with: none Associated Symptoms: denies other symptoms Treatments Prior to Arrival: none - Related Data Home Medications Medication Instructions Recorded Confirmed Last Taken DULoxetine [Cymbalta] 60 mg PO BID 09/22/21 09/22/21 09/21/21 Fluticasone Propionate [Flovent 50 mcg IH UNK 09/22/21 09/22/21 Unknown Diskus] Fluticasone/Salmeterol(Nf) [Advair 1 puff IH Q4H 09/22/21 09/22/21 Unknown HFA 115-21 mcg] Meloxicam [Mobic] 15 mg PO DAILY 09/22/21 09/22/21 09/21/21 Quetiapine Fumarate [SEROquel] 400 mg PO HS 09/22/21 09/22/21 09/21/21 Previous Rx's Medication Instructions Recorded Last Taken Type Folic Acid [Folvite] 1 mg PO QDAY #30 tablet 09/26/21 Unknown Rx Melatonin [Melatonin 5MG TAB] 5 mg PO QHS PRN #30 tablet 09/26/21 Unknown Rx Multivitamin Tab [Multiple Vitamin 1 each PO QDAY #30 tablet 09/26/21 Unknown Rx TAB (Theragran)] Thiamine [Vitamin B-1] 100 mg PO QDAY #30 tablet 09/26/21 Unknown Rx traZODone [Desyrel] 50 mg PO QHS #30 tablet 09/26/21 Unknown Rx Allergies Allergy/AdvReac Type Severity Reaction Status Date / Time No Known Drug Allergies Allergy Unknown Verified 04/26/22 07:59 ED Review of Systems ROS: Stated complaint: BONE COMING OUT FOOT Other details as noted in HPI Comment: All other systems reviewed and negative ED Past Medical Hx - Past Medical History Previous Medical History?: Yes Hx Congestive Heart Failure: No Hx Diabetes: No Hx Asthma: No Hx COPD: No - Surgical History Past Surgical History?: Yes - Family History Family history: no significant - Social History Smoking Status: Current Every Day Smoker Substance Use Type: Alcohol - Medications Home Medications: Home Medications Medication Instructions Recorded Confirmed Last Taken Type DULoxetine [Cymbalta] 60 mg PO BID 09/22/21 09/22/21 09/21/21 History Fluticasone Propionate [Flovent 50 mcg IH UNK 09/22/21 09/22/21 Unknown History Diskus] Fluticasone/Salmeterol(Nf) [Advair 1 puff IH Q4H 09/22/21 09/22/21 Unknown History HFA 115-21 mcg] Meloxicam [Mobic] 15 mg PO DAILY 09/22/21 09/22/21 09/21/21 History Quetiapine Fumarate [SEROquel] 400 mg PO HS 09/22/21 09/22/21 09/21/21 History Folic Acid [Folvite] 1 mg PO QDAY #30 tablet 09/26/21 Unknown Rx Melatonin [Melatonin 5MG TAB] 5 mg PO QHS PRN #30 tablet 09/26/21 Unknown Rx Multivitamin Tab [Multiple Vitamin 1 each PO QDAY #30 tablet 09/26/21 Unknown Rx TAB (Theragran)] Thiamine [Vitamin B-1] 100 mg PO QDAY #30 tablet 09/26/21 Unknown Rx traZODone [Desyrel] 50 mg PO QHS #30 tablet 09/26/21 Unknown Rx ED Physical Exam - General Limitations: No Limitations, Physical Limitation General appearance: alert, in no apparent distress - Head Head exam: Present: atraumatic, normocephalic - Eye Eye exam: Present: normal appearance - ENT ENT exam: Present: mucous membranes moist - Neck Neck exam: Present: normal inspection - Respiratory Respiratory exam: Present: normal lung sounds bilaterally. Absent: respiratory distress - Cardiovascular Cardiovascular Exam: Present: regular rate, normal rhythm. Absent: systolic murmur, diastolic murmur, rubs, gallop - GI/Abdominal GI/Abdominal exam: Present: soft, normal bowel sounds - Extremities Exam Extremities exam: Present: normal inspection - Back Exam Back exam: Present: normal inspection - Neurological Exam Neurological exam: Present: alert, oriented X3 - Psychiatric Psychiatric exam: Present: normal affect, normal mood - Skin Skin exam: Present: warm, dry, intact, normal color. Absent: rash ED Course Vital Signs 04/26/22 07:57 Temperature 98.6 F Pulse Rate 108 H Respiratory 16 Rate Blood Pressure 107/70 [Left] O2 Sat by Pulse 100 Oximetry ED Medical Decision Making - Medical Decision Making Vital Signs 04/26/22 07:57 Temperature 98.6 F Pulse Rate 108 H Respiratory 16 Rate Blood Pressure 107/70 [Left] O2 Sat by Pulse 100 Oximetry hr on exam 80 she denies use of etoh/drugs/fall/trauma no cp no sob ambulatory to FT no acute events a/c pain motrin for pain dc home with dc plan of care. pt now asking for a ride. - Differential Diagnosis a/c pain Critical care attestation.: If time is entered above; I have spent that time in minutes in the direct care of this critically ill patient, excluding procedure time. ED Disposition Clinical Impression: Foot pain Disposition: 01 HOME / SELF CARE / HOMELESS Is pt being admited?: No Does the pt Need Aspirin: No Condition: Stable Additional Instructions: over the counter motrin or tylenol for pain follow up with pcp referral below Referrals: RADHA NOVA MD [Primary Care Provider] - 3-5 Days Time of Disposition: 11:27
== END 2022-04-26 11:41 | disposition home or self-care (01) ==
LOC: ED 01:07
DX: M79.673 Pain in unspecified foot (principal); F17.200 Nicotine dependence, unspecified, uncomplicated; Z72.89 Other problems related to lifestyle; Z79.899 Other long term (current) drug therapy
CPT/HCPCS: 99282